=== PATIENT | male | born 1955 | race Caucasian/White ===

== ENCOUNTER 2018-06-05 16:31 | Emergency (ER) | payer BC, OTHER ==
--- NOTE | 2018-06-05 17:52 | XR ---
EXAMINATION TYPE: XR cervical spine trauma DATE OF EXAM: 06/05/2018 COMPARISON: NONE HISTORY: Neck pain TECHNIQUE: 6 views FINDINGS: There is a plate with screws fusing anteriorly the cervical spine from C3 to C6. There is a nterior spurring at C6-7. Posterior elements are intact. The atlantoaxial facet joint is normal. Ther e are no cervical ribs. IMPRESSION: Multilevel fusion surgery. 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 No fracture.
--- NOTE | 2018-06-05 17:53 | XR ---
EXAMINATION TYPE: XR chest 2V DATE OF EXAM: 06/05/2018 COMPARISON: NONE HISTORY: Chest pain TECHNIQUE: Frontal and lateral views of the chest are obtained. FINDINGS: Heart and mediastinum are normal. Lungs are clear. Diaphragm is normal. Bony thorax appear s normal. IMPRESSION: Normal chest. No change.
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
[2018-06-05 18:55] VITALS: RESP 18
[2018-06-05 18:58] VITALS: BP 168/89; PULSE 85; TEMP 97.8
== END 2018-06-05 18:55 | disposition home or self-care (01) ==
LOC: EC 16:31
DX: S16.1XXA Strain of muscle, fascia and tendon at neck level, initial encounter (principal); R07.89 Other chest pain; Z79.82 Long term (current) use of aspirin; V43.52XA Car driver injured in collision with other type car in traffic accident, initial encounter; Y92.410 Unspecified street and highway as the place of occurrence of the external cause
CPT/HCPCS: 71046; 72050; 99284